=== PATIENT | male | born 1985 | race Two or more races ===

== ENCOUNTER 2018-04-26 12:42 | Emergency (ER) | payer OTHER ==
[~2018-04-26] VITALS: Ht 160 cm; Wt 70.3 kg
[2018-04-26] MEDS ORDERED: SODIUM CHLORIDE 0.9% 1,000 ML IV ONE (14:00)
[2018-04-26 14:33] LABS: Basophils # (auto) 0 uL; Basophils % (auto) 0.1 % (0.0-2.0); Eosinophils # (auto) 0 uL; Eosinophils % (auto) 0.1 % (0.0-7.0); Hematocrit 42.4 % (41.0-53.0); Hemoglobin 14.7 g/dL (13.5-17.5); Lymphocytes % (auto) 8.4 % (10.0-50.0); Mean Corpuscular Hemoglobin 28.7 pg (28.0-32.0); Mean Corpuscular Hgb Conc. 34.7 g/dL (32.0-36.0); Mean Corpuscular Volume 82.5 fL (80.0-100.0); Monocytes # (auto) 0.7 uL; Monocytes % (auto) 5.8 % (0.0-12.0); Neutrophils # (auto) 10.7 uL; Neutrophils % (auto) 85.6 % (37.0-80.0); Platelet Count (auto) 200 10^3/uL (140-450); Red Blood Cells 5.14 10^6/uL (4.5-5.90); Red Cell Distribution Width 13.1 % (11.8-14.3); White Blood Cell 12.5 10^3/uL (4.4-10.8)
[2018-04-26 14:50] LABS: Alanine Aminotransferase 31 U/L (16-61); Albumin 3.7 g/dL (3.4-5.0); Anion Gap 10 (5-15); Aspartate Aminotransferase 19 U/L (15-37); Blood Urea Nitrogen 25 mg/dL (7-18); Calcium 8.9 mg/dL (8.5-10.1); Carbon Dioxide 23 mmol/L (21-32); Chloride 105 mmol/L (98-107); GFR African American 66 mL/min; GFR Non-African American 54 mL/min; Glucose 205 mg/dL (74-106); Potassium 3.7 mmol/L (3.5-5.1); Sodium 138 mmol/L (136-145)
[2018-04-26 14:55] LABS: Alkaline Phosphatase 85 U/L (45-117); Total Protein 7.3 g/dL (6.4-8.2)
[2018-04-26 15:00] VITALS: BP 145/108
[2018-04-26 16:10] LABS: Alcohol, Urine < 3.0 mg/dL (0-5); Amphetamine Screen, Urine POSITIVE (NEGATIVE); Barbiturate Scree,Urine NEGATIVE (NEGATIVE); Benzodiazephine Screen, Urine NEGATIVE (NEGATIVE); Cannabinoid Screen, Urine NEGATIVE (NEGATIVE); Cocaine Screen, Urine NEGATIVE (NEGATIVE); Opiate Scree,Urine NEGATIVE (NEGATIVE); Phencyclidine Screen, Urine NEGATIVE (NEGATIVE)
== END 2018-04-26 16:21 | disposition home or self-care (01) ==
LOC: EDBD 12:42 → ER 12:47
DX: F41.9 Anxiety disorder, unspecified (principal); F15.20 Other stimulant dependence, uncomplicated; F12.90 Cannabis use, unspecified, uncomplicated
CPT/HCPCS: 36415; 71045; 73562; 80053; 80307; 84484; 85025; 93005

== ENCOUNTER 2018-06-01 21:14 | Emergency (ER) | payer OTHER ==
[~2018-06-01] VITALS: Ht 165.1 cm; Wt 81.6 kg
[2018-06-01] MEDS ORDERED: SODIUM CHLORIDE 0.9% 1,000 ML IV ONE (22:00)
[2018-06-01] MEDS ORDERED: LORazepam 2MG/ML-1ML VIAL IV ONE (22:00)
[2018-06-01 22:21] LABS: Basophils # (auto) 0 uL; Basophils % (auto) 0.4 % (0.0-2.0); Eosinophils # (auto) 0 uL; Eosinophils % (auto) 0.1 % (0.0-7.0); Hematocrit 44.5 % (41.0-53.0); Hemoglobin 15.4 g/dL (13.5-17.5); Lymphocytes # (auto) 1.8 uL; Lymphocytes % (auto) 17.4 % (10.0-50.0); Mean Corpuscular Hemoglobin 28.5 pg (28.0-32.0); Mean Corpuscular Hgb Conc. 34.7 g/dL (32.0-36.0); Mean Corpuscular Volume 82.1 fL (80.0-100.0); Monocytes # (auto) 0.7 uL; Monocytes % (auto) 6.4 % (0.0-12.0); Neutrophils # (auto) 7.7 uL; Neutrophils % (auto) 75.7 % (37.0-80.0); Nucleated Red Blood Cells % 0.1 %; Platelet Count (auto) 258 10^3/uL (140-450); Red Blood Cells 5.42 10^6/uL (4.5-5.90); Red Cell Distribution Width 13.1 % (11.8-14.3); White Blood Cell 10.2 10^3/uL (4.4-10.8)
[2018-06-01 22:42] LABS: Albumin 4.2 g/dL (3.4-5.0); BUN/Creatinine Ratio 18.1; Calcium 9.5 mg/dL (8.5-10.1); Potassium 3.4 mmol/L (3.5-5.1)
[2018-06-01 22:44] LABS: Bilirubin, Total 1.4 mg/dL (0.2-1.0); Total Protein 8.3 g/dL (6.4-8.2)
[2018-06-02 05:29] VITALS: BP 110/77
== END 2018-06-02 05:46 | disposition home or self-care (01) ==
LOC: ER 21:24
DX: F15.10 Other stimulant abuse, uncomplicated (principal); F12.10 Cannabis abuse, uncomplicated; R44.3 Hallucinations, unspecified; R41.0 Disorientation, unspecified
CPT/HCPCS: 36415; 71045; 80053; 84484; 85025; 93005; 96361; 96374; 99284; J2060; J7030

== ENCOUNTER 2018-09-05 06:07 | Inpatient (IN) | payer OTHER ==
[~2018-09-05] VITALS: Ht 172.7 cm; Wt 68.2 kg
[2018-09-05 06:38] LABS: Basophils # (auto) 0.1 uL; Basophils % (auto) 0.4 % (0.0-2.0); Eosinophils # (auto) 0 uL; Eosinophils % (auto) 0.2 % (0.0-7.0); Hematocrit 41.6 % (41.0-53.0); Hemoglobin 14.4 g/dL (13.5-17.5); Lymphocytes # (auto) 1.1 uL; Lymphocytes % (auto) 9.6 % (10.0-50.0); Mean Corpuscular Hemoglobin 28.6 pg (28.0-32.0); Mean Corpuscular Hgb Conc. 34.7 g/dL (32.0-36.0); Mean Corpuscular Volume 82.4 fL (80.0-100.0); Monocytes # (auto) 0.7 uL; Monocytes % (auto) 6.6 % (0.0-12.0); Neutrophils # (auto) 9.5 uL; Neutrophils % (auto) 83.2 % (37.0-80.0); Nucleated Red Blood Cells % 0.1 %; Platelet Count (auto) 228 10^3/uL (140-450); Red Blood Cells 5.05 10^6/uL (4.5-5.90); Red Cell Distribution Width 13.3 % (11.8-14.3); White Blood Cell 11.4 10^3/uL (4.4-10.8)
[2018-09-05] MEDS ORDERED: SODIUM CHLORIDE 0.9% 1,000 ML IVB ONE (06:38)
[2018-09-05] MEDS ORDERED: diphenhdrAMINE HCL 50 MG/1 ML VL IV ONE (06:45)
[2018-09-05] MEDS ORDERED: LORazepam 2MG/ML-1ML VIAL IV ONE (06:45)
[2018-09-05 08:36] LABS: Calcium 8.9 mg/dL (8.5-10.1); Chloride 106 mmol/L (98-107); Potassium 3.6 mmol/L (3.5-5.1); Sodium 141 mmol/L (136-145)
[2018-09-05 08:42] LABS: Anion Gap 13 (5-15); Blood Urea Nitrogen 21 mg/dL (7-18); Carbon Dioxide 22 mmol/L (21-32); Glucose 234 mg/dL (74-106); Magnesium 2.3 mg/dL (1.6-2.6)
[2018-09-05 08:44] LABS: Alcohol, Urine < 3.0 mg/dL (0-5); Amphetamine Screen, Urine POSITIVE (NEGATIVE); Barbiturate Scree,Urine NEGATIVE (NEGATIVE); Benzodiazephine Screen, Urine NEGATIVE (NEGATIVE); Cannabinoid Screen, Urine NEGATIVE (NEGATIVE); Cocaine Screen, Urine NEGATIVE (NEGATIVE); Opiate Scree,Urine NEGATIVE (NEGATIVE); Phencyclidine Screen, Urine NEGATIVE (NEGATIVE)
[2018-09-05 08:45] LABS: Blood Alcohol < 3.0 mg/dL (0-5)
[2018-09-05 08:46] LABS: Urine Bacteria NONE SEEN /hpf (None Seen); Urine Blood Negative /uL (Negative); Urine Hyaline Cast MOD /lpf (0 - 2); Urine Mucus FEW (None Seen); Urine Specific Gravity 1.028 (1.001-1.035); Urine WBC 7 /hpf (0 - 3)
[2018-09-05 08:57] LABS: BUN/Creatinine Ratio 15.3; GFR African American 76 mL/min; GFR Non-African American 63 mL/min
[2018-09-05 08:58] LABS: Alanine Aminotransferase 34 U/L (16-61); Alkaline Phosphatase 103 U/L (45-117); Aspartate Aminotransferase 25 U/L (15-37); Bilirubin, Total 1.4 mg/dL (0.2-1.0); Total Protein 8.3 g/dL (6.4-8.2)
[2018-09-05] MEDS ORDERED: DEXTROSE (50%) 50ML SYRG IV PRN (09:45)
[2018-09-05] MEDS ORDERED: LORazepam 2MG/ML-1ML VIAL IV PRN (09:45)
[2018-09-05] MEDS ORDERED: ONDANSETRON HCL 4 MG/2 ML VIAL IV PRN (09:45)
[2018-09-05] MEDS ORDERED: ACETAMINOPHEN 500 MG TAB PO PRN (09:45)
[2018-09-05] MEDS: SODIUM CHLORIDE 0.9% 1,000 ML IV SCH ×2 (09:49→21:51)
[2018-09-05] MEDS: FAMOTIDINE (10MG/ML) 2ML VL IV SCH ×2 (10:11→21:50)
--- NOTE | 2018-09-05 10:30 | NUR ---
PT IN LOW FOWLERS, RESPONSIVE TO VERBAL COMMANDS. PT IS DROWSY AT MOMENT, ABLE TO ANSWER SIMPLE QUESTIONS AND TRACKS MOVEMENT. PT ORIENTED TO ENVIRONMENT, BED IN LOWEST POSITION, WHEELS LOCKED, CALL LIGHT WITHIN REACH. COMFORTABLE ENVIRONMENT PROVIDED.
[2018-09-05] MEDS: InsuLIN REG 1unit/0.01ml Soln (100units/ml) SC SCH ×3 (11:30→21:50)
[2018-09-05] MEDS: ACCU-CHEK COMFORT CURVE STRIP VI SCH ×3 (13:06→21:51)
[2018-09-05 17:00] VITALS: BP 132/90
--- NOTE | 2018-09-05 19:30 | NUR ---
Opening Shift Note Assumed care of patient, awake and alert. No S/S of distress/SOB or pain. Instructed on POC and to call for assist PRN, will continue to monitor for changes Q1hr and PRN.
[2018-09-05 22:00] VITALS: BP 125/85
[2018-09-06 04:47] VITALS: BP 136/92
[2018-09-06] MEDS: InsuLIN REG 1unit/0.01ml Soln (100units/ml) SC SCH ×2 (06:15→12:43)
[2018-09-06] MEDS: SODIUM CHLORIDE 0.9% 1,000 ML IV SCH ×2 (06:15→09:57)
[2018-09-06] MEDS: ACCU-CHEK COMFORT CURVE STRIP VI SCH ×2 (06:16→12:43)
[2018-09-06 07:30] VITALS: BP 133/69
[2018-09-06] MEDS: FAMOTIDINE (10MG/ML) 2ML VL IV SCH (09:57)
--- NOTE | 2018-09-06 10:00 | NUR ---
DR. HOLGUIN IN TO SE PT. PLAN OF CARE DISCUSSED. PT IN AGREEMENT WITH PLAN.
[2018-09-06 12:30] VITALS: BP 137/90
[2018-09-06 13:41] LABS: Basophils # (auto) 0.1 uL; Basophils % (auto) 0.7 % (0.0-2.0); Eosinophils # (auto) 0.1 uL; Eosinophils % (auto) 1.8 % (0.0-7.0); Hematocrit 39.9 % (41.0-53.0); Hemoglobin 13.9 g/dL (13.5-17.5); Lymphocytes # (auto) 2.2 uL; Mean Corpuscular Hemoglobin 29.2 pg (28.0-32.0); Mean Corpuscular Hgb Conc. 34.9 g/dL (32.0-36.0); Mean Corpuscular Volume 83.5 fL (80.0-100.0); Monocytes # (auto) 0.6 uL; Monocytes % (auto) 7.3 % (0.0-12.0); Neutrophils # (auto) 4.9 uL; Neutrophils % (auto) 62.2 % (37.0-80.0); Nucleated Red Blood Cells % 0.1 %; Platelet Count (auto) 220 10^3/uL (140-450); Red Blood Cells 4.78 10^6/uL (4.5-5.90); Red Cell Distribution Width 13.7 % (11.8-14.3); White Blood Cell 7.9 10^3/uL (4.4-10.8)
[2018-09-06 14:03] LABS: Potassium 3.6 mmol/L (3.5-5.1)
[2018-09-06 14:08] LABS: Albumin 3.4 g/dL (3.4-5.0); BUN/Creatinine Ratio 13.5; Bilirubin, Total 0.9 mg/dL (0.2-1.0); Calcium 8.6 mg/dL (8.5-10.1); Total Protein 7.3 g/dL (6.4-8.2)
[2018-09-06 16:30] VITALS: BP 137/90
--- NOTE | 2018-09-06 17:03 | NUR ---
DISCHARGE INSTRUCTIONS GIVEN TO PT. PT VERBALIZED UNDERSTANDING FOR PRESCRIPTION ORDERS AND FOLLOW UP APPOINTMENT. EDUCATIONAL MATERIAL PROVIDED. QUESTIONS AND CONCERNS ADDRESSED. IV CATHETER DC'D INTACT, NO PHLEBITIS. PT SAFELY ESCORTED OUT OF UNIT, ACCOMPANIED BY FAMILY.
== END 2018-09-06 18:54 | disposition home or self-care (01) | DRG 812 ==
LOC: EDBD 06:07 → ER 06:07 → OVERFLOW 06:08 → EAST 10:21
PROVIDERS: ADMIT Nurse Practitioner Acute Care; ATTEND Nurse Practitioner Acute Care
DX: T43.621A Poisoning by amphetamines, accidental (unintentional), initial encounter (principal); N17.0 Acute kidney failure with tubular necrosis; G92 Toxic encephalopathy; F15.10 Other stimulant abuse, uncomplicated; R00.0 Tachycardia, unspecified; N18.9 Chronic kidney disease, unspecified; E11.22 Type 2 diabetes mellitus with diabetic chronic kidney disease; I12.9 Hypertensive chronic kidney disease with stage 1 through stage 4 chronic kidney disease, or unspecified chronic kidney disease; E11.21 Type 2 diabetes mellitus with diabetic nephropathy; D72.828 Other elevated white blood cell count; Z79.84 Long term (current) use of oral hypoglycemic drugs; Z83.3 Family history of diabetes mellitus; Y92.89 Other specified places as the place of occurrence of the external cause; Z82.49 Family history of ischemic heart disease and other diseases of the circulatory system
CPT/HCPCS: 36415; 70450; 71045; 80053; 80307; 80320; 81001; 82962; 83036; 83735; 84484; 85025; 93005; 94761; 96361; 96374; 96375; G0378; J1815; J3490

== ENCOUNTER 2019-01-17 22:30 | Emergency (ER) | payer OTHER ==
[~2019-01-17] VITALS: Ht 160 cm; Wt 70.3 kg
[2019-01-17 22:58] VITALS: BP 166/107
[2019-01-17] MEDS ORDERED: HYDROcodone-ACET 10/325MG TAB PO ONE (23:00)
== END 2019-01-18 01:40 | disposition home or self-care (01) ==
LOC: ER 22:34
DX: R07.89 Other chest pain (principal); E11.9 Type 2 diabetes mellitus without complications; I10 Essential (primary) hypertension; E78.5 Hyperlipidemia, unspecified; F12.10 Cannabis abuse, uncomplicated; F15.10 Other stimulant abuse, uncomplicated
CPT/HCPCS: 71111

== ENCOUNTER 2021-03-12 01:04 | Emergency (ER) | payer MEDICAID, OTHER ==
[~2021-03-12] VITALS: Ht 160 cm; Wt 72.6 kg
[2021-03-12 01:04] VITALS: BP 145/96
== END 2021-03-12 01:43 ==
LOC: ER 01:04
DX: S20.319A Abrasion of unspecified front wall of thorax, initial encounter (principal); I10 Essential (primary) hypertension; E11.9 Type 2 diabetes mellitus without complications; E78.5 Hyperlipidemia, unspecified; W22.8XXA Striking against or struck by other objects, initial encounter; Y93.89 Activity, other specified; Y92.89 Other specified places as the place of occurrence of the external cause; Y99.8 Other external cause status

== ENCOUNTER 2022-04-24 20:53 | Inpatient (IN) | payer MEDICAID ==
[~2022-04-24] VITALS: Ht 167.6 cm; Wt 88.3 kg
[2022-04-24 21:06] VITALS: BP 80/50
[2022-04-24] MEDS ORDERED: NOREPINEPHRINE 8 MG/250ML KIT 250 ML IV ONE (21:16)
[2022-04-24 21:28] LABS: Urine WBC None Seen /hpf (0 - 3)
[2022-04-24] MEDS ORDERED: SODIUM CHLORIDE 0.9% 2,000 ML IV ONE (21:30)
[2022-04-24 21:36] LABS: Basophils # (auto) 0.1 10 ^3/uL (0-0.2); Basophils % (auto) 0.7 % (0.0-2.0); Eosinophils # (auto) 0.1 10 ^3/uL (0-0.8); Eosinophils % (auto) 0.5 % (0.0-7.0); Hematocrit 40.3 % (41.0-53.0); Hemoglobin 12.8 g/dL (13.5-17.5); Lymphocytes # (auto) 4.8 10 ^3/uL (0.4-5.4); Lymphocytes % (auto) 30.3 % (10.0-50.0); Mean Corpuscular Hemoglobin 28.6 pg (28.0-32.0); Mean Corpuscular Hgb Conc. 31.6 g/dL (32.0-36.0); Mean Corpuscular Volume 90.3 fL (80.0-100.0); Monocytes # (auto) 0.4 10 ^3/uL (0-1.3); Monocytes % (auto) 2.5 % (0.0-12.0); Neutrophils # (auto) 10.5 10 ^3/uL (1.6-8.6); Nucleated Red Blood Cells % 0.2 %; Red Blood Cells 4.46 10^6/uL (4.5-5.90); Red Cell Distribution Width 13.9 % (11.8-14.3); White Blood Cell 15.9 10^3/uL (4.4-10.8)
[2022-04-24 21:38] LABS: Urine Bacteria NONE SEEN /hpf (None Seen); Urine Blood Negative /uL (Negative); Urine Mucus FEW (None Seen); Urine Specific Gravity 1.029 (1.001-1.035); Urine Sperm PRESENT /hpf (None Seen)
[2022-04-24] MEDS: NOREPINEPHRINE 8 MG/250ML KIT 250 ML IV SCH (21:45)
[2022-04-24 21:49] LABS: Albumin 3.3 g/dL (3.4-5.0); Anion Gap 18 (5-15); Blood Alcohol < 3.0 mg/dL (0-5); Blood Urea Nitrogen 33 mg/dL (7-18); Calcium 10.4 mg/dL (8.5-10.1); Carbon Dioxide 20 mmol/L (21-32); Chloride 99 mmol/L (98-107); Magnesium 3.5 mg/dL (1.6-2.6); Potassium 3.8 mmol/L (3.5-5.1); Sodium 137 mmol/L (136-145)
[2022-04-24 21:49] LABS: Amphetamine Screen, Urine POSITIVE (NEGATIVE); Barbiturate Scree,Urine NEGATIVE (NEGATIVE); Benzodiazephine Screen, Urine NEGATIVE (NEGATIVE); Cannabinoid Screen, Urine NEGATIVE (NEGATIVE); Cocaine Screen, Urine NEGATIVE (NEGATIVE); Phencyclidine Screen, Urine NEGATIVE (NEGATIVE)
[2022-04-24 21:53] LABS: Alanine Aminotransferase 62 U/L (16-61); Alkaline Phosphatase 110 U/L (45-117); Aspartate Aminotransferase 64 U/L (15-37); BUN/Creatinine Ratio 13.3; Bilirubin, Total 1.1 mg/dL (0.2-1.0); GFR African American 38 mL/min; GFR Non-African American 31 mL/min; Total Protein 6.4 g/dL (6.4-8.2)
[2022-04-24 21:56] LABS: Glucose 483 mg/dL (74-106)
[2022-04-24 21:57] LABS: Opiate Scree,Urine NEGATIVE (NEGATIVE)
[2022-04-24 22:18] LABS: Lactic Acid w/Reflex 11.2 mmol/L (0.4-2.0)
[2022-04-24 22:21] LABS: INR 1.03 (0.9-1.15); Partial Thromboplastin Time 29.1 sec (24.6-33.4)
[2022-04-24 22:35] VITALS: BP 199/123
[2022-04-24] MEDS: MIDAZOLAM DRIP 50 mg/50mL 50 ML IV SCH (22:45)
[2022-04-24] MEDS: PROPOFOL 100 ML IV SCH (22:45)
[2022-04-24] MEDS ORDERED: PROPOFOL 100 ML IV ONE (22:46)
[2022-04-24 23:07] VITALS: BP 199/123
[2022-04-25] VITALS (47 sets, daily range): BP systolic 72–191; BP diastolic 50–115
[2022-04-25] MEDS ORDERED: InsuLIN REG 1unit/0.01ml Soln (100units/ml) ONE (00:09)
[2022-04-25] MEDS ORDERED: DEXTROSE (50%) 50ML SYRG IV PRN ×2 (00:15→05:15)
[2022-04-25] MEDS ORDERED: InsuLIN R (HUMAN) 100 UNITS in SODIUM CHL 0.9% 99 ML IV SCH (00:15)
[2022-04-25] MEDS: ACCU-CHEK COMFORT CURVE STRIP VI SCH ×8 (01:30→21:01)
[2022-04-25 03:05] LABS: BUN/Creatinine Ratio 19.7; Calcium 8.6 mg/dL (8.5-10.1); Potassium 4.7 mmol/L (3.5-5.1)
[2022-04-25] MEDS ORDERED: MANNITOL 20% SOLN 100 gm/500ml 500 ML IV ONE (03:30)
[2022-04-25] MEDS ORDERED: DexAMETHasone SOD PHOS 10MG/1ML VIAL INJ IV ONE (03:30)
[2022-04-25] MEDS ORDERED: fentaNYL Drip 2500mCg/250mlNS 250 ML IV ONE (03:34)
[2022-04-25] MEDS ORDERED: MAGNESIUM SULFATE 1GM/100ML 100 ML IV ONE ×3 (03:36→03:45)
[2022-04-25] MEDS: MIDAZOLAM DRIP 50 mg/50mL 50 ML IV SCH ×4 (03:45→18:31)
[2022-04-25] MEDS: fentaNYL Drip 2500mCg/250mlNS 250 ML IV SCH (03:45)
[2022-04-25] MEDS ORDERED: MANNITOL 20 % (20GM/100ML) 500 ML IV ONE (04:23)
[2022-04-25] MEDS ORDERED: SODIUM BICARBONATE 8.4 % INJ 50ML VIAL IV ONE (05:15)
[2022-04-25] MEDS ORDERED: NITROGLYCERIN 0.4 MG SL TAB SL PRN (05:15)
[2022-04-25] MEDS ORDERED: MORPHINE SULFATE INJ 2 MG/ml SYRG IV PRN (05:15)
[2022-04-25] MEDS ORDERED: ONDANSETRON HCL 4 MG/2 ML VIAL IV PRN (05:15)
[2022-04-25] MEDS ORDERED: ACETAMINOPHEN 325 MG TAB PO PRN (05:15)
[2022-04-25] MEDS: SODIUM CHLORIDE 0.9% 1,000 ML IV SCH ×2 (06:03→17:01)
[2022-04-25] MEDS: cefTRIAXone 1GM/50ML D5W 50 ML IV SCH ×2 (06:03→09:00)
[2022-04-25 06:13] LABS: Anion Gap 11 (5-15); BUN/Creatinine Ratio 19.1; Blood Urea Nitrogen 35 mg/dL (7-18); Calcium 8.4 mg/dL (8.5-10.1); Carbon Dioxide 21 mmol/L (21-32); Chloride 110 mmol/L (98-107); GFR African American 54 mL/min; GFR Non-African American 44 mL/min; Glucose 265 mg/dL (74-106); Potassium 4.5 mmol/L (3.5-5.1); Sodium 142 mmol/L (136-145)
[2022-04-25] MEDS: CLINDAMYCIN 600MG IV 50 ML IV SCH ×3 (06:26→22:01)
[2022-04-25] MEDS: InsuLIN REG 1unit/0.01ml Soln (100units/ml) SC SCH ×4 (08:09→21:01)
[2022-04-25] MEDS ORDERED: PANTOPRAZOLE 40 MG/10 ML VIAL INJ IV SCH (10:00)
[2022-04-25 12:40] LABS: BUN/Creatinine Ratio 21.2; Calcium 8.7 mg/dL (8.5-10.1)
[2022-04-25 12:49] LABS: Potassium 2.9 mmol/L (3.5-5.1)
[2022-04-25] MEDS: PROPOFOL 100 ML IV SCH (13:31)
[2022-04-25] MEDS: NOREPINEPHRINE 8 MG/250ML KIT 250 ML IV SCH (14:03)
[2022-04-25 18:28] LABS: BUN/Creatinine Ratio 19.6; Potassium 3.1 mmol/L (3.5-5.1)
[2022-04-25] MEDS: POTASSIUM CHL 20MEQ/100ML 100 ML IV SCH (23:15)
[2022-04-26] VITALS (101 sets, daily range): BP systolic 72–148; BP diastolic 44–109
[2022-04-26] MEDS: InsuLIN REG 1unit/0.01ml Soln (100units/ml) SC SCH ×6 (00:25→20:57)
[2022-04-26] MEDS: ACCU-CHEK COMFORT CURVE STRIP VI SCH ×6 (00:25→21:00)
[2022-04-26] MEDS: POTASSIUM CHL 20MEQ/100ML 100 ML IV SCH ×2 (01:34→04:10)
[2022-04-26] MEDS: MIDAZOLAM DRIP 50 mg/50mL 50 ML IV SCH ×5 (02:53→19:45)
[2022-04-26] MEDS: fentaNYL Drip 2500mCg/250mlNS 250 ML IV SCH ×2 (03:45→12:42)
[2022-04-26] MEDS ORDERED: NOREPINEPHRINE 8 MG/250ML KIT 250 ML IV SCH (04:45)
[2022-04-26] MEDS: CLINDAMYCIN 600MG IV 50 ML IV SCH ×3 (05:40→21:34)
[2022-04-26] MEDS: SODIUM CHLORIDE 0.9% 1,000 ML IV SCH (05:54)
[2022-04-26 06:34] LABS: Basophils # (auto) 0 10 ^3/uL (0-0.2); Basophils % (auto) 0.2 % (0.0-2.0); Eosinophils # (auto) 0 10 ^3/uL (0-0.8); Hemoglobin 14.3 g/dL (13.5-17.5); Lymphocytes # (auto) 1.3 10 ^3/uL (0.4-5.4); Lymphocytes % (auto) 6.1 % (10.0-50.0); Mean Corpuscular Hemoglobin 28.8 pg (28.0-32.0); Mean Corpuscular Hgb Conc. 34.8 g/dL (32.0-36.0); Mean Corpuscular Volume 82.8 fL (80.0-100.0); Monocytes # (auto) 0.7 10 ^3/uL (0-1.3); Monocytes % (auto) 3.4 % (0.0-12.0); Neutrophils # (auto) 19.1 10 ^3/uL (1.6-8.6); Neutrophils % (auto) 90.3 % (37.0-80.0); Nucleated Red Blood Cells % 0.2 %; Red Blood Cells 4.96 10^6/uL (4.5-5.90); Red Cell Distribution Width 14.1 % (11.8-14.3); White Blood Cell 21.2 10^3/uL (4.4-10.8)
[2022-04-26 06:53] LABS: Albumin 2.8 g/dL (3.4-5.0); Calcium 8.5 mg/dL (8.5-10.1); Potassium 4.7 mmol/L (3.5-5.1)
[2022-04-26 06:56] LABS: BUN/Creatinine Ratio 17.2; Bilirubin, Total 1.1 mg/dL (0.2-1.0); Total Protein 5.6 g/dL (6.4-8.2)
[2022-04-26] MEDS: NOREPINEPHRINE 8 MG/250ML KIT 250 ML IV SCH ×2 (08:00→09:43)
[2022-04-26] MEDS: SOD CHL 0.45% 1,000 ML IV SCH (14:01)
[2022-04-26] MEDS: PROPOFOL 100 ML IV SCH (22:45)
[2022-04-27] VITALS (105 sets, daily range): BP systolic 88–126; BP diastolic 52–79
[2022-04-27] MEDS: ACCU-CHEK COMFORT CURVE STRIP VI SCH ×6 (00:44→20:21)
[2022-04-27] MEDS: MIDAZOLAM DRIP 50 mg/50mL 50 ML IV SCH ×5 (00:45→20:45)
[2022-04-27] MEDS: InsuLIN REG 1unit/0.01ml Soln (100units/ml) SC SCH ×6 (00:45→20:21)
[2022-04-27] MEDS: SOD CHL 0.45% 1,000 ML IV SCH (04:11)
[2022-04-27] MEDS: CLINDAMYCIN 600MG IV 50 ML IV SCH ×3 (06:08→23:13)
[2022-04-27 06:47] LABS: Basophils # (auto) 0 10 ^3/uL (0-0.2); Basophils % (auto) 0.2 % (0.0-2.0); Eosinophils # (auto) 0 10 ^3/uL (0-0.8); Hematocrit 38.2 % (41.0-53.0); Lymphocytes # (auto) 2.8 10 ^3/uL (0.4-5.4); Lymphocytes % (auto) 13.9 % (10.0-50.0); Mean Corpuscular Hemoglobin 29.5 pg (28.0-32.0); Mean Corpuscular Hgb Conc. 34.1 g/dL (32.0-36.0); Mean Corpuscular Volume 86.4 fL (80.0-100.0); Monocytes # (auto) 0.8 10 ^3/uL (0-1.3); Neutrophils # (auto) 16.3 10 ^3/uL (1.6-8.6); Neutrophils % (auto) 81.9 % (37.0-80.0); Red Blood Cells 4.42 10^6/uL (4.5-5.90); Red Cell Distribution Width 14.7 % (11.8-14.3); White Blood Cell 19.9 10^3/uL (4.4-10.8)
[2022-04-27 07:18] LABS: BUN/Creatinine Ratio 17.6; Calcium 8.9 mg/dL (8.5-10.1); Potassium 3.8 mmol/L (3.5-5.1)
[2022-04-27] MEDS: PANTOPRAZOLE 40 MG/10 ML VIAL INJ IV SCH (09:44)
[2022-04-27] MEDS ORDERED: Glucerna 1.2 Cal 1Liter BOTTLE GT SCH (15:00)
[2022-04-27] MEDS: FREE WATER GT SCH ×2 (17:33→23:13)
[2022-04-27] MEDS ORDERED: MORPHINE SULFATE INJ 2 MG/ml SYRG IV PRN (21:00)
[2022-04-27] MEDS ORDERED: LORazepam 2MG/ML-1ML VIAL IV PRN (21:00)
[2022-04-27] MEDS: PROPOFOL 100 ML IV SCH (22:45)
[2022-04-27 22:51] LABS: Calcium 9.5 mg/dL (8.5-10.1)
[2022-04-27 22:53] LABS: Potassium 2.3 mmol/L (3.5-5.1)
[2022-04-27] MEDS: POTASSIUM CHL 20MEQ/100ML 100 ML IV SCH (23:26)
[2022-04-28] VITALS (106 sets, daily range): BP systolic 76–120; BP diastolic 48–87
[2022-04-28] MEDS: ACCU-CHEK COMFORT CURVE STRIP VI SCH ×6 (00:11→20:25)
[2022-04-28] MEDS: InsuLIN REG 1unit/0.01ml Soln (100units/ml) SC SCH ×6 (00:14→20:27)
[2022-04-28] MEDS: POTASSIUM CHL 20MEQ/100ML 100 ML IV SCH ×4 (01:01→13:30)
[2022-04-28] MEDS: MIDAZOLAM DRIP 50 mg/50mL 50 ML IV SCH ×5 (01:45→21:45)
[2022-04-28] MEDS: FREE WATER GT SCH ×6 (02:52→22:38)
[2022-04-28] MEDS: CLINDAMYCIN 600MG IV 50 ML IV SCH ×3 (05:49→22:38)
[2022-04-28 06:15] LABS: Basophils # (auto) 0 10 ^3/uL (0-0.2); Basophils % (auto) 0.1 % (0.0-2.0); Eosinophils # (auto) 0.1 10 ^3/uL (0-0.8); Eosinophils % (auto) 0.5 % (0.0-7.0); Hematocrit 36.8 % (41.0-53.0); Hemoglobin 12.5 g/dL (13.5-17.5); Lymphocytes # (auto) 2.2 10 ^3/uL (0.4-5.4); Lymphocytes % (auto) 17.8 % (10.0-50.0); Mean Corpuscular Hemoglobin 29.1 pg (28.0-32.0); Mean Corpuscular Hgb Conc. 33.9 g/dL (32.0-36.0); Mean Corpuscular Volume 85.7 fL (80.0-100.0); Monocytes # (auto) 0.7 10 ^3/uL (0-1.3); Monocytes % (auto) 5.6 % (0.0-12.0); Neutrophils # (auto) 9.4 10 ^3/uL (1.6-8.6); Nucleated Red Blood Cells % 0.4 %; Red Cell Distribution Width 14.8 % (11.8-14.3); White Blood Cell 12.4 10^3/uL (4.4-10.8)
[2022-04-28 06:23] LABS: Potassium 3.1 mmol/L (3.5-5.1)
[2022-04-28 06:35] LABS: BUN/Creatinine Ratio 18.1; Calcium 9.3 mg/dL (8.5-10.1)
[2022-04-28] MEDS: NOREPINEPHRINE 8 MG/250ML KIT 250 ML IV SCH (07:12)
[2022-04-28] MEDS: PANTOPRAZOLE 40 MG/10 ML VIAL INJ IV SCH (09:41)
[2022-04-28] MEDS: PROPOFOL 100 ML IV SCH (22:45)
[2022-04-29] VITALS (103 sets, daily range): BP systolic 81–134; BP diastolic 49–94
[2022-04-29] MEDS: ACCU-CHEK COMFORT CURVE STRIP VI SCH ×6 (00:37→20:23)
[2022-04-29] MEDS: InsuLIN REG 1unit/0.01ml Soln (100units/ml) SC SCH ×6 (00:46→20:40)
[2022-04-29] MEDS: FREE WATER GT SCH ×6 (01:55→20:38)
[2022-04-29] MEDS: NOREPINEPHRINE 8 MG/250ML KIT 250 ML IV SCH (01:55)
[2022-04-29] MEDS: MIDAZOLAM DRIP 50 mg/50mL 50 ML IV SCH ×5 (02:45→22:45)
[2022-04-29] MEDS: CLINDAMYCIN 600MG IV 50 ML IV SCH ×3 (06:34→20:39)
[2022-04-29 07:25] LABS: Potassium 4.1 mmol/L (3.5-5.1)
[2022-04-29 07:44] LABS: BUN/Creatinine Ratio 18.5; Calcium 9.5 mg/dL (8.5-10.1)
[2022-04-29] MEDS: PANTOPRAZOLE 40 MG/10 ML VIAL INJ IV SCH (09:11)
[2022-04-29] MEDS ORDERED: Glucerna 1.2 Cal 1Liter BOTTLE GT SCH (15:00)
[2022-04-29] MEDS: PROPOFOL 100 ML IV SCH (22:45)
[2022-04-30] VITALS (101 sets, daily range): BP systolic 53–200; BP diastolic 31–126
[2022-04-30] MEDS: ACCU-CHEK COMFORT CURVE STRIP VI SCH ×7 (00:17→23:38)
[2022-04-30] MEDS: InsuLIN REG 1unit/0.01ml Soln (100units/ml) SC SCH ×7 (00:20→23:37)
[2022-04-30] MEDS: FREE WATER GT SCH ×6 (02:00→21:42)
[2022-04-30] MEDS: MIDAZOLAM DRIP 50 mg/50mL 50 ML IV SCH ×4 (03:45→22:53)
[2022-04-30] MEDS: CLINDAMYCIN 600MG IV 50 ML IV SCH ×3 (04:41→21:42)
[2022-04-30] MEDS: NOREPINEPHRINE 8 MG/250ML KIT 250 ML IV SCH ×3 (05:48→19:00)
[2022-04-30] MEDS: PROPOFOL 100 ML IV SCH (07:27)
[2022-04-30] MEDS: PANTOPRAZOLE 40 MG/10 ML VIAL INJ IV SCH (08:30)
[2022-04-30 09:13] LABS: Basophils # (auto) 0 10 ^3/uL (0-0.2); Basophils % (auto) 0.4 % (0.0-2.0); Eosinophils # (auto) 0.3 10 ^3/uL (0-0.8); Eosinophils % (auto) 4.1 % (0.0-7.0); Hematocrit 35.4 % (41.0-53.0); Hemoglobin 11.9 g/dL (13.5-17.5); Lymphocytes # (auto) 1.3 10 ^3/uL (0.4-5.4); Lymphocytes % (auto) 20.3 % (10.0-50.0); Mean Corpuscular Hemoglobin 29.4 pg (28.0-32.0); Mean Corpuscular Hgb Conc. 33.6 g/dL (32.0-36.0); Mean Corpuscular Volume 87.5 fL (80.0-100.0); Monocytes # (auto) 0.6 10 ^3/uL (0-1.3); Monocytes % (auto) 8.8 % (0.0-12.0); Neutrophils # (auto) 4.2 10 ^3/uL (1.6-8.6); Neutrophils % (auto) 66.4 % (37.0-80.0); Nucleated Red Blood Cells % 0.2 %; Red Blood Cells 4.05 10^6/uL (4.5-5.90); Red Cell Distribution Width 15.8 % (11.8-14.3); White Blood Cell 6.4 10^3/uL (4.4-10.8)
[2022-04-30 09:44] LABS: Calcium 8.8 mg/dL (8.5-10.1); Potassium 4.3 mmol/L (3.5-5.1)
[2022-04-30 09:47] LABS: BUN/Creatinine Ratio 19.8; Bilirubin, Total 1.7 mg/dL (0.2-1.0); Total Protein 6.1 g/dL (6.4-8.2)
[2022-04-30] MEDS: D5W 5% 1,000 ML IV SCH (12:10)
[2022-04-30 22:03] LABS: BUN/Creatinine Ratio 19.1; Calcium 8.5 mg/dL (8.5-10.1)
[2022-05-01] VITALS (103 sets, daily range): BP systolic 81–121; BP diastolic 51–82
[2022-05-01] MEDS: D5W 5% 1,000 ML IV SCH ×2 (01:23→14:26)
[2022-05-01] MEDS: FREE WATER GT SCH ×6 (01:38→21:32)
[2022-05-01] MEDS: InsuLIN REG 1unit/0.01ml Soln (100units/ml) SC SCH ×6 (03:40→23:42)
[2022-05-01] MEDS: ACCU-CHEK COMFORT CURVE STRIP VI SCH ×6 (03:41→23:44)
[2022-05-01] MEDS: NOREPINEPHRINE 8 MG/250ML KIT 250 ML IV SCH ×2 (03:51→13:28)
[2022-05-01] MEDS: MIDAZOLAM DRIP 50 mg/50mL 50 ML IV SCH ×5 (04:10→23:44)
[2022-05-01 05:06] LABS: Basophils # (auto) 0 10 ^3/uL (0-0.2); Basophils % (auto) 0.3 % (0.0-2.0); Eosinophils # (auto) 0.3 10 ^3/uL (0-0.8); Eosinophils % (auto) 4.7 % (0.0-7.0); Hematocrit 32.9 % (41.0-53.0); Hemoglobin 11.3 g/dL (13.5-17.5); Lymphocytes # (auto) 1.1 10 ^3/uL (0.4-5.4); Lymphocytes % (auto) 16.9 % (10.0-50.0); Mean Corpuscular Hemoglobin 29.6 pg (28.0-32.0); Mean Corpuscular Hgb Conc. 34.2 g/dL (32.0-36.0); Mean Corpuscular Volume 86.6 fL (80.0-100.0); Monocytes # (auto) 0.5 10 ^3/uL (0-1.3); Monocytes % (auto) 7.6 % (0.0-12.0); Neutrophils # (auto) 4.7 10 ^3/uL (1.6-8.6); Neutrophils % (auto) 70.5 % (37.0-80.0); Nucleated Red Blood Cells % 0.4 %; Red Cell Distribution Width 15.8 % (11.8-14.3); White Blood Cell 6.7 10^3/uL (4.4-10.8)
[2022-05-01 05:33] LABS: Albumin 1.7 g/dL (3.4-5.0); Bilirubin, Total 1.4 mg/dL (0.2-1.0); Potassium 4.3 mmol/L (3.5-5.1)
[2022-05-01] MEDS: CLINDAMYCIN 600MG IV 50 ML IV SCH ×3 (05:33→21:32)
[2022-05-01] MEDS: PANTOPRAZOLE 40 MG/10 ML VIAL INJ IV SCH (09:22)
[2022-05-01 12:34] LABS: Potassium 4.5 mmol/L (3.5-5.1)
[2022-05-01 19:16] LABS: BUN/Creatinine Ratio 21.9; Calcium 7.5 mg/dL (8.5-10.1)
[2022-05-01] MEDS: PROPOFOL 100 ML IV SCH (21:29)
[2022-05-02] VITALS (98 sets, daily range): BP systolic 57–128; BP diastolic 22–88
[2022-05-02 01:05] LABS: BUN/Creatinine Ratio 22.5; Calcium 7.7 mg/dL (8.5-10.1); Potassium 4.5 mmol/L (3.5-5.1)
[2022-05-02] MEDS: FREE WATER GT SCH ×6 (01:57→21:53)
[2022-05-02] MEDS: NOREPINEPHRINE 8 MG/250ML KIT 250 ML IV SCH ×2 (02:00→16:15)
[2022-05-02] MEDS: InsuLIN REG 1unit/0.01ml Soln (100units/ml) SC SCH ×5 (03:21→20:19)
[2022-05-02] MEDS: ACCU-CHEK COMFORT CURVE STRIP VI SCH ×5 (03:21→20:16)
[2022-05-02] MEDS: D5W 5% 1,000 ML IV SCH ×3 (05:15→18:19)
[2022-05-02] MEDS: MIDAZOLAM DRIP 50 mg/50mL 50 ML IV SCH ×4 (05:16→20:45)
[2022-05-02 05:44] LABS: BUN/Creatinine Ratio 23.6; Potassium 4.4 mmol/L (3.5-5.1)
[2022-05-02] MEDS: CLINDAMYCIN 600MG IV 50 ML IV SCH ×3 (06:00→21:53)
[2022-05-02] MEDS: PANTOPRAZOLE 40 MG/10 ML VIAL INJ IV SCH (09:42)
[2022-05-02] MEDS: PROPOFOL 100 ML IV SCH (21:59)
[2022-05-03] VITALS (104 sets, daily range): BP systolic 75–124; BP diastolic 49–85
[2022-05-03] MEDS: InsuLIN REG 1unit/0.01ml Soln (100units/ml) SC SCH ×7 (00:38→23:50)
[2022-05-03] MEDS: ACCU-CHEK COMFORT CURVE STRIP VI SCH ×7 (00:38→23:50)
[2022-05-03 01:22] LABS: BUN/Creatinine Ratio 22.9; Calcium 8.4 mg/dL (8.5-10.1); Potassium 4.5 mmol/L (3.5-5.1)
[2022-05-03] MEDS: FREE WATER GT SCH ×6 (02:00→22:01)
[2022-05-03] MEDS: MIDAZOLAM DRIP 50 mg/50mL 50 ML IV SCH ×5 (05:38→21:45)
[2022-05-03] MEDS: CLINDAMYCIN 600MG IV 50 ML IV SCH ×3 (05:38→22:01)
[2022-05-03 05:58] LABS: BUN/Creatinine Ratio 23.6; Potassium 4.6 mmol/L (3.5-5.1)
[2022-05-03] MEDS: PANTOPRAZOLE 40 MG/10 ML VIAL INJ IV SCH (09:13)
[2022-05-03 13:10] LABS: Calcium 8.6 mg/dL (8.5-10.1); Potassium 4.8 mmol/L (3.5-5.1)
[2022-05-03 13:12] LABS: BUN/Creatinine Ratio 23.3
[2022-05-03] MEDS: CEFEPIME 1GM/ 50ML 50 ML IV SCH ×2 (13:20→23:05)
[2022-05-03] MEDS: NOREPINEPHRINE 8 MG/250ML KIT 250 ML IV SCH (15:15)
[2022-05-03] MEDS: PROPOFOL 100 ML IV SCH (22:45)
[2022-05-04] VITALS (105 sets, daily range): BP systolic 85–119; BP diastolic 53–79
[2022-05-04] MEDS: MIDAZOLAM DRIP 50 mg/50mL 50 ML IV SCH ×4 (02:45→22:30)
[2022-05-04] MEDS: NOREPINEPHRINE 8 MG/250ML KIT 250 ML IV SCH ×2 (03:09→19:52)
[2022-05-04] MEDS: FREE WATER GT SCH ×5 (03:09→21:56)
[2022-05-04] MEDS: ACCU-CHEK COMFORT CURVE STRIP VI SCH ×6 (04:53→23:30)
[2022-05-04] MEDS: InsuLIN REG 1unit/0.01ml Soln (100units/ml) SC SCH ×6 (04:53→23:20)
[2022-05-04] MEDS: CLINDAMYCIN 600MG IV 50 ML IV SCH ×3 (05:30→21:56)
[2022-05-04 06:17] LABS: Basophils # (auto) 0 10 ^3/uL (0-0.2); Basophils % (auto) 0.3 % (0.0-2.0); Eosinophils # (auto) 0.2 10 ^3/uL (0-0.8); Eosinophils % (auto) 2.4 % (0.0-7.0); Hematocrit 33.9 % (41.0-53.0); Hemoglobin 11.1 g/dL (13.5-17.5); Lymphocytes # (auto) 1.3 10 ^3/uL (0.4-5.4); Lymphocytes % (auto) 12.9 % (10.0-50.0); Mean Corpuscular Hemoglobin 28.6 pg (28.0-32.0); Mean Corpuscular Hgb Conc. 32.9 g/dL (32.0-36.0); Mean Corpuscular Volume 87.1 fL (80.0-100.0); Monocytes # (auto) 0.5 10 ^3/uL (0-1.3); Monocytes % (auto) 4.8 % (0.0-12.0); Neutrophils % (auto) 79.6 % (37.0-80.0); Nucleated Red Blood Cells % 0.3 %; Red Blood Cells 3.89 10^6/uL (4.5-5.90); Red Cell Distribution Width 15.8 % (11.8-14.3)
[2022-05-04 06:36] LABS: Potassium 4.8 mmol/L (3.5-5.1)
[2022-05-04] MEDS: PANTOPRAZOLE 40 MG/10 ML VIAL INJ IV SCH (09:30)
[2022-05-04] MEDS: CEFEPIME 1GM/ 50ML 50 ML IV SCH ×2 (10:42→23:05)
[2022-05-04] MEDS ORDERED: TPN PER PHARMACY 0 ML IV SCH (18:30)
[2022-05-04] MEDS ORDERED: AMINO ACID INFUSION IN D5W 1,000 ML IV NR (20:00)
[2022-05-04] MEDS: PROPOFOL 100 ML IV SCH (20:23)
[2022-05-05] VITALS (106 sets, daily range): BP systolic 74–176; BP diastolic 42–98
[2022-05-05] MEDS: FREE WATER GT SCH ×6 (01:50→21:25)
[2022-05-05] MEDS: NOREPINEPHRINE 8 MG/250ML KIT 250 ML IV SCH ×5 (01:50→21:43)
[2022-05-05] MEDS: MIDAZOLAM DRIP 50 mg/50mL 50 ML IV SCH ×5 (03:15→23:45)
[2022-05-05] MEDS: ACCU-CHEK COMFORT CURVE STRIP VI SCH ×6 (04:09→23:58)
[2022-05-05] MEDS: InsuLIN REG 1unit/0.01ml Soln (100units/ml) SC SCH ×5 (04:10→21:15)
[2022-05-05] MEDS: CLINDAMYCIN 600MG IV 50 ML IV SCH ×3 (05:45→21:25)
[2022-05-05 06:13] LABS: Basophils # (auto) 0 10 ^3/uL (0-0.2); Basophils % (auto) 0.2 % (0.0-2.0); Eosinophils # (auto) 0.2 10 ^3/uL (0-0.8); Eosinophils % (auto) 2.1 % (0.0-7.0); Hematocrit 34.2 % (41.0-53.0); Lymphocytes # (auto) 1.1 10 ^3/uL (0.4-5.4); Lymphocytes % (auto) 10.7 % (10.0-50.0); Mean Corpuscular Hemoglobin 28.5 pg (28.0-32.0); Mean Corpuscular Hgb Conc. 32.1 g/dL (32.0-36.0); Mean Corpuscular Volume 88.8 fL (80.0-100.0); Monocytes # (auto) 0.4 10 ^3/uL (0-1.3); Neutrophils # (auto) 8.4 10 ^3/uL (1.6-8.6); Nucleated Red Blood Cells % 0.2 %; Red Blood Cells 3.85 10^6/uL (4.5-5.90); White Blood Cell 10.1 10^3/uL (4.4-10.8)
[2022-05-05 06:27] LABS: Potassium 4.3 mmol/L (3.5-5.1)
[2022-05-05 06:34] LABS: Albumin 1.2 g/dL (3.4-5.0); BUN/Creatinine Ratio 22.9; Calcium 8.2 mg/dL (8.5-10.1); Magnesium 3.3 mg/dL (1.6-2.6)
[2022-05-05 06:37] LABS: Bilirubin, Total 1.5 mg/dL (0.2-1.0); Phosphorus 7.1 mg/dL (2.5-4.90)
[2022-05-05] MEDS: PANTOPRAZOLE 40 MG/10 ML VIAL INJ IV SCH (09:59)
[2022-05-05] MEDS: CEFEPIME 1GM/ 50ML 50 ML IV SCH ×2 (10:00→22:52)
[2022-05-05] MEDS ORDERED: dilTIAZem 25 MG/5 ML VIAL IV PRN (14:25)
[2022-05-05] MEDS ORDERED: dilTIAZem 25 MG/5 ML VIAL IV ONE (14:29)
[2022-05-05] MEDS ORDERED: METOPROLOL TARTRATE 1MG/1ML-5ML VIAL IV PRN (14:30)
[2022-05-05] MEDS: PHENYLEPHRINE IV 250 ML IV SCH (18:02)
[2022-05-05] MEDS: TPN PER PHARMACY IV NR ×6 (21:14)
[2022-05-05] MEDS: PROPOFOL 100 ML IV SCH (21:25)
[2022-05-06] VITALS (102 sets, daily range): BP systolic 88–132; BP diastolic 42–77
[2022-05-06] MEDS: InsuLIN REG 1unit/0.01ml Soln (100units/ml) SC SCH ×6 (00:01→19:47)
[2022-05-06] MEDS: PHENYLEPHRINE IV 250 ML IV SCH ×7 (00:07→23:14)
[2022-05-06] MEDS: FREE WATER GT SCH ×6 (03:02→21:37)
[2022-05-06] MEDS: ACCU-CHEK COMFORT CURVE STRIP VI SCH ×5 (04:20→19:47)
[2022-05-06] MEDS: MIDAZOLAM DRIP 50 mg/50mL 50 ML IV SCH ×4 (04:23→19:45)
[2022-05-06 05:35] LABS: Calcium 7.6 mg/dL (8.5-10.1); Magnesium 3.1 mg/dL (1.6-2.6); Potassium 4.6 mmol/L (3.5-5.1)
[2022-05-06] MEDS: CLINDAMYCIN 600MG IV 50 ML IV SCH (05:38)
[2022-05-06 05:39] LABS: BUN/Creatinine Ratio 21.7; Bilirubin, Total 1.5 mg/dL (0.2-1.0); Phosphorus 8.6 mg/dL (2.5-4.90); Total Protein 4.6 g/dL (6.4-8.2)
[2022-05-06] MEDS: NOREPINEPHRINE 8 MG/250ML KIT 250 ML IV SCH ×2 (08:00→21:13)
[2022-05-06] MEDS: PANTOPRAZOLE 40 MG/10 ML VIAL INJ IV SCH (10:07)
[2022-05-06] MEDS: CEFEPIME 1GM/ 50ML 50 ML IV SCH ×2 (10:14→23:14)
[2022-05-06] MEDS ORDERED: SODIUM BICARBONATE 50ML VIAL 100 ML in D5W 5% 1,000 ML IV SCH (14:45)
[2022-05-06] MEDS ORDERED: BUMETANIDE 2.5mg/10ml (0.25 mg/ml) INJ IV ONE (14:45)
[2022-05-06] MEDS: CALCIUM ACETATE 667 MG CAP PO SCH ×2 (16:06→21:39)
[2022-05-06] MEDS: VASOPRESSIN 20 UNITS in SODIUM CHL 0.9% 99 ML IV SCH (17:45)
[2022-05-06] MEDS: TPN PER PHARMACY IV NR ×6 (19:54)
[2022-05-06] MEDS ORDERED: TPN PER PHARMACY IV NR ×6 (20:00)
[2022-05-06] MEDS: CLINDAMYCIN 300MG IV 100 ML IV SCH (21:10)
[2022-05-06] MEDS: PROPOFOL 100 ML IV SCH (21:38)
[2022-05-07] VITALS (102 sets, daily range): BP systolic 87–173; BP diastolic 39–84
[2022-05-07] MEDS: InsuLIN REG 1unit/0.01ml Soln (100units/ml) SC SCH ×7 (00:12→23:58)
[2022-05-07] MEDS: ACCU-CHEK COMFORT CURVE STRIP VI SCH ×6 (00:15→20:09)
[2022-05-07] MEDS: MIDAZOLAM DRIP 50 mg/50mL 50 ML IV SCH ×5 (00:15→20:45)
[2022-05-07] MEDS: FREE WATER GT SCH ×6 (03:54→21:33)
[2022-05-07] MEDS: VASOPRESSIN 20 UNITS in SODIUM CHL 0.9% 99 ML IV SCH ×2 (04:52→15:59)
[2022-05-07] MEDS: CLINDAMYCIN 300MG IV 100 ML IV SCH ×3 (05:42→21:33)
[2022-05-07] MEDS: CALCIUM ACETATE 667 MG CAP PO SCH ×3 (05:42→21:34)
[2022-05-07] MEDS: NOREPINEPHRINE 8 MG/250ML KIT 250 ML IV SCH ×3 (05:43→14:32)
[2022-05-07] MEDS: PHENYLEPHRINE IV 250 ML IV SCH ×4 (06:21→23:50)
[2022-05-07 07:24] LABS: BUN/Creatinine Ratio 23.2; Bilirubin, Total 0.7 mg/dL (0.2-1.0); Calcium 6.7 mg/dL (8.5-10.1); Magnesium 2.5 mg/dL (1.6-2.6); Phosphorus 8.5 mg/dL (2.5-4.90); Potassium 4.9 mmol/L (3.5-5.1); Total Protein 1.5 g/dL (6.4-8.2)
[2022-05-07 07:43] LABS: Albumin 0.4 g/dL (3.4-5.0)
[2022-05-07] MEDS: ALBUMIN 25% 100 ML IV SCH ×2 (10:03→17:26)
[2022-05-07] MEDS: PANTOPRAZOLE 40 MG/10 ML VIAL INJ IV SCH (10:03)
[2022-05-07] MEDS: CEFEPIME 1GM/ 50ML 50 ML IV SCH ×2 (10:05→22:49)
[2022-05-07] MEDS: SODIUM BICARBONATE 50ML VIAL 50 ML in D5W 5% 1,000 ML IV SCH ×3 (11:33→20:10)
[2022-05-07] MEDS: Nepro With Carb Steady 1 Liter Bottle GT SCH (17:21)
[2022-05-07] MEDS ORDERED: TPN PER PHARMACY IV NR ×7 (20:00)
[2022-05-07] MEDS: PROPOFOL 100 ML IV SCH (22:45)
[2022-05-07] MEDS: PHENYLEPHRINE INJ 80 MG in SODIUM CHL 0.9% 242 ML IV SCH (23:18)
[2022-05-07] MEDS: NOREPINEPHRINE BITARTRATE 32 MG in SODIUM CHL 0.9% 218 ML IV SCH (23:19)
[2022-05-08] VITALS (104 sets, daily range): BP systolic 85–131; BP diastolic 40–119
[2022-05-08] MEDS: ALBUMIN 25% 100 ML IV SCH (01:20)
[2022-05-08] MEDS: FREE WATER GT SCH ×6 (02:00→21:24)
[2022-05-08] MEDS: VASOPRESSIN 20 UNITS in SODIUM CHL 0.9% 99 ML IV SCH ×2 (03:06→14:13)
[2022-05-08] MEDS: ACCU-CHEK COMFORT CURVE STRIP VI SCH ×7 (04:16→23:57)
[2022-05-08] MEDS: InsuLIN REG 1unit/0.01ml Soln (100units/ml) SC SCH ×6 (04:19→23:57)
[2022-05-08 05:15] LABS: Albumin 1.4 g/dL (3.4-5.0); BUN/Creatinine Ratio 22.1; Calcium 7.8 mg/dL (8.5-10.1); Magnesium 2.4 mg/dL (1.6-2.6); Potassium 4.1 mmol/L (3.5-5.1)
[2022-05-08 05:18] LABS: Bilirubin, Total 3.3 mg/dL (0.2-1.0); Phosphorus 7.3 mg/dL (2.5-4.90); Total Protein 4.7 g/dL (6.4-8.2)
[2022-05-08] MEDS: SODIUM BICARBONATE 50ML VIAL 50 ML in D5W 5% 1,000 ML IV SCH ×3 (05:29→22:08)
[2022-05-08] MEDS: CALCIUM ACETATE 667 MG CAP PO SCH ×3 (06:19→21:24)
[2022-05-08] MEDS: CLINDAMYCIN 300MG IV 100 ML IV SCH ×3 (06:44→21:24)
[2022-05-08] MEDS: ALBUTEROL SULF 2.5 MG/0.5ML(0.5%) NEB SOLN NEB SCH ×5 (09:42→22:23)
[2022-05-08] MEDS: IPRATROPIUM BROM 0.5 MG/2.5ML INH SOL NEB SCH ×5 (09:42→22:23)
[2022-05-08] MEDS: PANTOPRAZOLE 40 MG/10 ML VIAL INJ IV SCH (10:08)
[2022-05-08] MEDS: CEFEPIME 1GM/ 50ML 50 ML IV SCH ×2 (10:09→10:30)
[2022-05-08] MEDS: MIDAZOLAM DRIP 50 mg/50mL 50 ML IV SCH ×3 (10:12→21:45)
[2022-05-08] MEDS: PHENYLEPHRINE IV 250 ML IV SCH (10:12)
[2022-05-08 11:35] LABS: Protein, Urine 61.6 mg/dL (0.0-11.9)
[2022-05-08] MEDS: ACETYLCYSTEINE 20%(200MG/ML) SOL 4ML NEB SCH ×2 (13:47→22:23)
[2022-05-08] MEDS: PHENYLEPHRINE INJ 80 MG in SODIUM CHL 0.9% 242 ML IV SCH (14:00)
[2022-05-08] MEDS: NOREPINEPHRINE BITARTRATE 32 MG in SODIUM CHL 0.9% 218 ML IV SCH ×2 (14:00→20:58)
[2022-05-08] MEDS: PROPOFOL 100 ML IV SCH (22:45)
[2022-05-09] VITALS (105 sets, daily range): BP systolic 85–131; BP diastolic 43–69
[2022-05-09] MEDS: VASOPRESSIN 20 UNITS in SODIUM CHL 0.9% 99 ML IV SCH ×3 (01:20→23:34)
[2022-05-09] MEDS: IPRATROPIUM BROM 0.5 MG/2.5ML INH SOL NEB SCH ×6 (02:11→22:50)
[2022-05-09] MEDS: ALBUTEROL SULF 2.5 MG/0.5ML(0.5%) NEB SOLN NEB SCH ×6 (02:11→22:50)
[2022-05-09] MEDS: FREE WATER GT SCH ×8 (02:38→22:55)
[2022-05-09] MEDS: MIDAZOLAM DRIP 50 mg/50mL 50 ML IV SCH ×5 (02:45→22:45)
[2022-05-09] MEDS: PHENYLEPHRINE INJ 80 MG in SODIUM CHL 0.9% 242 ML IV SCH ×2 (04:12→18:30)
[2022-05-09] MEDS: InsuLIN REG 1unit/0.01ml Soln (100units/ml) SC SCH ×5 (04:16→20:56)
[2022-05-09] MEDS: ACCU-CHEK COMFORT CURVE STRIP VI SCH ×5 (04:16→20:54)
[2022-05-09] MEDS: CLINDAMYCIN 300MG IV 100 ML IV SCH ×3 (05:51→22:54)
[2022-05-09] MEDS: CALCIUM ACETATE 667 MG CAP PO SCH ×3 (05:51→22:54)
[2022-05-09] MEDS: ACETYLCYSTEINE 20%(200MG/ML) SOL 4ML NEB SCH ×3 (06:02→22:51)
[2022-05-09] MEDS: SODIUM BICARBONATE 50ML VIAL 50 ML in D5W 5% 1,000 ML IV SCH ×3 (06:43→16:54)
[2022-05-09 07:44] LABS: Albumin 1.1 g/dL (3.4-5.0); BUN/Creatinine Ratio 21.7; Bilirubin, Total 4.2 mg/dL (0.2-1.0); Calcium 7.6 mg/dL (8.5-10.1); Potassium 4.2 mmol/L (3.5-5.1); Total Protein 5.2 g/dL (6.4-8.2)
[2022-05-09 08:43] LABS: Basophils # (auto) 0.1 10 ^3/uL (0-0.2); Basophils % (auto) 0.8 % (0.0-2.0); Eosinophils # (auto) 0.3 10 ^3/uL (0-0.8); Eosinophils % (auto) 1.8 % (0.0-7.0); Hematocrit 26.7 % (41.0-53.0); Lymphocytes # (auto) 2.4 10 ^3/uL (0.4-5.4); Lymphocytes % (auto) 14.7 % (10.0-50.0); Mean Corpuscular Hemoglobin 27.8 pg (28.0-32.0); Mean Corpuscular Hgb Conc. 32.1 g/dL (32.0-36.0); Mean Corpuscular Volume 86.7 fL (80.0-100.0); Neutrophils # (auto) 12.7 10 ^3/uL (1.6-8.6); Neutrophils % (auto) 76.7 % (37.0-80.0); Nucleated Red Blood Cells % 0.9 %; Red Blood Cells 3.08 10^6/uL (4.5-5.90); Red Cell Distribution Width 16.5 % (11.8-14.3); White Blood Cell 16.5 10^3/uL (4.4-10.8)
[2022-05-09 08:46] LABS: Hemoglobin 8.6 g/dL (13.5-17.5)
[2022-05-09] MEDS: CEFEPIME 1GM/ 50ML 50 ML IV SCH (09:26)
[2022-05-09] MEDS: PANTOPRAZOLE 40 MG/10 ML VIAL INJ IV SCH (09:26)
[2022-05-09] MEDS ORDERED: SODIUM CHL 0.9% 1000 ML BAG XX ONE (10:00)
[2022-05-09 10:24] LABS: INR 1.26 (0.9-1.15); Partial Thromboplastin Time 57.4 sec (24.6-33.4)
[2022-05-09] MEDS: BUMETANIDE INJECTION 12.5 MG in GIVE UN-DILUTED 0 ML IV SCH ×2 (12:04→18:36)
[2022-05-09] MEDS: NOREPINEPHRINE BITARTRATE 32 MG in SODIUM CHL 0.9% 218 ML IV SCH (14:32)
[2022-05-09] MEDS ORDERED: EPOETIN ALFA-EPBX 10,000 UNIT/1ML VIAL SC ONE (21:00)
[2022-05-09] MEDS ORDERED: HEPARIN SODIUM (PORCINE) 5000 UNITS/ML 1ML VIAL IV ONE (22:07)
[2022-05-09] MEDS ORDERED: HEPARIN SODIUM (PORCINE) 5000 UNITS/ML 1ML VIAL ONE (22:19)
[2022-05-09] MEDS: PROPOFOL 100 ML IV SCH (22:45)
[2022-05-10] VITALS (102 sets, daily range): BP systolic 0–158; BP diastolic 0–94
[2022-05-10] MEDS: ACCU-CHEK COMFORT CURVE STRIP VI SCH ×6 (00:10→20:00)
[2022-05-10] MEDS: IPRATROPIUM BROM 0.5 MG/2.5ML INH SOL NEB SCH ×5 (01:31→18:58)
[2022-05-10] MEDS: ALBUTEROL SULF 2.5 MG/0.5ML(0.5%) NEB SOLN NEB SCH ×5 (01:31→18:58)
[2022-05-10] MEDS: FREE WATER GT SCH ×5 (02:36→18:00)
[2022-05-10] MEDS: InsuLIN REG 1unit/0.01ml Soln (100units/ml) SC SCH ×6 (04:34→20:00)
[2022-05-10] MEDS: Nepro With Carb Steady 1 Liter Bottle GT SCH (04:54)
[2022-05-10] MEDS: CLINDAMYCIN 300MG IV 100 ML IV SCH ×2 (05:07→15:56)
[2022-05-10] MEDS: CALCIUM ACETATE 667 MG CAP PO SCH ×2 (05:07→15:55)
[2022-05-10 05:31] LABS: Basophils # (auto) 0.1 10 ^3/uL (0-0.2); Basophils % (auto) 0.5 % (0.0-2.0); Eosinophils # (auto) 0.2 10 ^3/uL (0-0.8); Eosinophils % (auto) 1.3 % (0.0-7.0); Hematocrit 26.5 % (41.0-53.0); Hemoglobin 8.6 g/dL (13.5-17.5); Lymphocytes % (auto) 12.1 % (10.0-50.0); Mean Corpuscular Hgb Conc. 32.4 g/dL (32.0-36.0); Mean Corpuscular Volume 86.5 fL (80.0-100.0); Monocytes # (auto) 0.8 10 ^3/uL (0-1.3); Monocytes % (auto) 4.8 % (0.0-12.0); Neutrophils # (auto) 13.5 10 ^3/uL (1.6-8.6); Neutrophils % (auto) 81.3 % (37.0-80.0); Nucleated Red Blood Cells % 0.6 %; Red Blood Cells 3.06 10^6/uL (4.5-5.90); Red Cell Distribution Width 15.8 % (11.8-14.3); White Blood Cell 16.6 10^3/uL (4.4-10.8)
[2022-05-10 05:50] LABS: Potassium 4.8 mmol/L (3.5-5.1)
[2022-05-10 05:55] LABS: BUN/Creatinine Ratio 22.9; Calcium 7.1 mg/dL (8.5-10.1)
[2022-05-10] MEDS: ACETYLCYSTEINE 20%(200MG/ML) SOL 4ML NEB SCH ×2 (05:56→14:13)
[2022-05-10 05:58] LABS: Bilirubin, Total 5.7 mg/dL (0.2-1.0); Total Protein 4.4 g/dL (6.4-8.2)
[2022-05-10] MEDS: PHENYLEPHRINE INJ 80 MG in SODIUM CHL 0.9% 242 ML IV SCH ×2 (06:32→21:02)
[2022-05-10] MEDS: PANTOPRAZOLE 40 MG/10 ML VIAL INJ IV SCH (09:35)
[2022-05-10] MEDS: CEFEPIME 1GM/ 50ML 50 ML IV SCH (09:40)
[2022-05-10] MEDS: VASOPRESSIN 20 UNITS in SODIUM CHL 0.9% 99 ML IV SCH ×2 (10:41→21:35)
[2022-05-10] MEDS ORDERED: ALBUMIN 25% 100 ML IV ONE ×2 (13:50→14:00)
[2022-05-10] MEDS: SODIUM BICARBONATE 50ML VIAL 50 ML in D5W 5% 1,000 ML IV SCH (16:00)
[2022-05-10 17:56] LABS: Calcium 7.7 mg/dL (8.5-10.1); Potassium 3.9 mmol/L (3.5-5.1)
[2022-05-10 17:57] LABS: BUN/Creatinine Ratio 18.8
[2022-05-10] MEDS: NOREPINEPHRINE BITARTRATE 32 MG in SODIUM CHL 0.9% 218 ML IV SCH (20:09)
[2022-05-10] MEDS ORDERED: FUROSEMIDE INJECTION 100 MG in D5W 5% 100 ML IV SCH (21:15)
[2022-05-10] MEDS ORDERED: ATROPINE SULF 1 MG/10ml SYR IV ONE (21:34)
[2022-05-10] MEDS ORDERED: EPINEPHrine HCL 1 MG/10 ML SYRG IV ONE (21:36)
[2022-05-10] MEDS ORDERED: SODIUM BICARBONATE 8.4% INJ 50ML SYRINGE ONE (21:36)
[2022-05-10] MEDS ORDERED: SODIUM BICARBONATE 8.4 % INJ 50ML VIAL IV ONE (21:45)
[2022-05-10] MEDS ORDERED: EPINEPHrine HCL 250 ML IV SCH (23:35)
== END 2022-05-11 03:26 | DRG 720 ==
LOC: EDBD 20:53 → ER 20:55 → TELE 04-25 05:10 → ICU CENTRL 04-25 13:26
PROVIDERS: ADMIT Nurse Practitioner; ATTEND Hospitalist
PROC: 5A1955Z Respiratory Ventilation, Greater than 96 Consecutive Hours (ICD-10-PCS; principal; 2022-04-25)
PROC: 0BH17EZ Insertion of Endotracheal Airway into Trachea, Via Natural or Artificial Opening (ICD-10-PCS; 2022-04-25)
PROC: 5A12012 Performance of Cardiac Output, Single, Manual (ICD-10-PCS; 2022-04-25)
PROC: 5A2204Z Restoration of Cardiac Rhythm, Single (ICD-10-PCS; 2022-04-25)
PROC: 06HY33Z Insertion of Infusion Device into Lower Vein, Percutaneous Approach (ICD-10-PCS; 2022-04-25)
PROC: 02HV33Z Insertion of Infusion Device into Superior Vena Cava, Percutaneous Approach (ICD-10-PCS; 2022-05-09)
PROC: B548ZZA Ultrasonography of Superior Vena Cava, Guidance (ICD-10-PCS; 2022-05-09)
DX: A41.9 Sepsis, unspecified organism (principal); I46.9 Cardiac arrest, cause unspecified; J96.01 Acute respiratory failure with hypoxia; N17.0 Acute kidney failure with tubular necrosis; J69.0 Pneumonitis due to inhalation of food and vomit; G92.8 Other toxic encephalopathy; Z66 Do not resuscitate; J95.851 Ventilator associated pneumonia; E88.09 Other disorders of plasma-protein metabolism, not elsewhere classified; T40.411A Poisoning by fentanyl or fentanyl analogs, accidental (unintentional), initial encounter; T43.621A Poisoning by amphetamines, accidental (unintentional), initial encounter; E87.4 Mixed disorder of acid-base balance; G93.1 Anoxic brain damage, not elsewhere classified; E11.65 Type 2 diabetes mellitus with hyperglycemia; E78.5 Hyperlipidemia, unspecified; F15.10 Other stimulant abuse, uncomplicated; G40.909 Epilepsy, unspecified, not intractable, without status epilepticus; I10 Essential (primary) hypertension; J98.11 Atelectasis; F11.20 Opioid dependence, uncomplicated; E87.1 Hypo-osmolality and hyponatremia; E87.0 Hyperosmolality and hypernatremia; E66.9 Obesity, unspecified; Y95 Nosocomial condition; Z20.822 Contact with and (suspected) exposure to COVID-19; R65.21 Severe sepsis with septic shock; Z68.24 Body mass index [BMI] 24.0-24.9, adult; Z99.2 Dependence on renal dialysis; Y92.89 Other specified places as the place of occurrence of the external cause; Z99.11 Dependence on respirator [ventilator] status
CPT/HCPCS: 36415; 36600; 70450; 71045; 71250; 72125; 74176; 76775; 80048; 80053; 80307; 80320; 81001; 82271; 82550; 82570; 82805; 82962; 83605; 83735; 83880; 84100; 84132; 84156; 84300; 84478; 84484; 85025; 85610; 85730; 87040; 87070; 87081; 87205; 87426; 90935; 92950; 93005; 93306; 94002; 94003; 94640; 95819; 96361; 96365; 96366; 96367; 96368; 96372; 96375; 99291; C9113; G0378; J0696; J1100; J1815; J2250; J2704; J3480; J3490; J7060; P9047